=== PATIENT | female | born 1935 | race Caucasian/White ===

== ENCOUNTER 2017-06-25 13:39 | Outpatient (CLI) | payer MEDICARE, BC ==
[2017-06-25] MEDS ORDERED: Gadobenate Dimeglumine 529 MG/1 ML (20ML VIAL) ONE (15:57)
--- NOTE | 2017-06-25 17:58 | RAD ---
EXAM: CERVICAL SPINE FOUR VIEWS: 06/25/17 HISTORY: Right sided neck pain. Difficulty grabbing items with the right hand. Symptom times several years. COMPARISON: None. CORRELATION: Cervical spine MRI 02/04/14. FINDINGS: Four views cervical spine: There is an anterior fusion plate with transvertebral body screw at C5, C6 and C7. There appears to be demineralization of C6 and C7. Disc prosthesis at C5-C6 and C6-C7 is noted. Cervical spine verteb ral body height is maintained. Acute fracture is not appreciated. There is no prevertebral soft tiss ue swelling. Predental space is normal. On the AP projection, no malalignment. On the open mouth pro jection, limited evaluation of the odontoid process. IMPRESSION: Demineralization involving C5, C6, and C7. No evidence of complicated process or loosening. Presence of demineralization is nonspecific. Additional imaging with possible CT is recommended. POS: [facility]
--- NOTE | 2017-06-25 19:33 | MRI ---
CERVICAL SPINE MRI WITH AND WITHOUT CONTRAST 06/25/17 COMPARISON: Cervical spine MRI without contrast 02/04/14. HISTORY: Prior history of cervical spinal cord injury. Prior cervical spine surgery. TECHNIQUE: Multiplanar and multisequence MR imaging of the cervical spine provided with and without contrast. FINDINGS: There is reversal of the normal cervical lordosis centered at the C5 level. There is stable anterior wedging/vertebral body height loss anteriorly involving the C5 vertebral body. There is hardware as sociated with anterior discectomy and fusion spanning the C5-6 and C6-7 levels, not well assessed on this examination and unchanged. The sagittal STIR imaging demonstrates no focal area of osseous mar row edema. C2-3: Stable disc space narrowing and disc desiccation. Stable mild bilateral facet hypertrophy. Sta ble mild left neural foraminal stenosis. No significant central canal or right neural foraminal sten osis. C3-4: There is disc space narrowing, disc desiccation and mild disc bulge with no significant centra l canal stenosis. Facet and uncovertebral osteophyte formation noted bilaterally, left greater than right. Stable mild bilateral neural foraminal stenosis, left greater than right. C4-5: Disc space narrowing and disc desiccation. Mild bilateral facet hypertrophy. No significant ce ntral canal or neural foraminal stenosis. C5-6: Disc space narrowing disc desiccation noted. No central canal stenosis. Uncovertebral and face t osteophyte formation noted bilaterally, stable. Mild/moderate bilateral neural foraminal stenosis noted. C6-7: Bilateral uncovertebral osteophyte formation noted, left greater than right. Mild bilateral ne ural foraminal stenosis, left greater than right. No central canal stenosis. C7-T1: Bilateral facet hypertrophy present with mild bilateral neural foraminal stenosis. Disc space narrowing and disc desiccation noted with no significant central canal stenosis. There is a focal area of abnormal increased signal intensity within the posterior aspect of the cerv ical cord on the right at the C2-3 level. There is a punctate focus of blooming artifact along the s urface of the cord posteriorly on the right. This is unchanged when compared to studies dating back to 2007, evidence of prior cord injury and/or myelomalacia. In addition, the right lateral aspect of the cord demonstrates mild increased signal intensity and volume loss at the C7 level, similar when compared to the prior exam, also representing an area of myelomalacia. Postcontrast imaging demonstrates no abnormal enhancement involving contents of the thecal sac, the intervertebral discs, other visualized vertebral bodies. IMPRESSION: Multilevel postoperative and degenerative change within the cervical spine, not significantly change d when compared to prior imaging. 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 POS: [facility]
== END 2017-06-25 13:40 | disposition home or self-care (01) ==
LOC: TBSIIMAG 13:39
PROVIDERS: ATTEND Neurological Surgery
DX: S14.109D Unspecified injury at unspecified level of cervical spinal cord, subsequent encounter (principal); M47.812 Spondylosis without myelopathy or radiculopathy, cervical region; Z98.890 Other specified postprocedural states
CPT/HCPCS: 72040; 72156; A9579

== ENCOUNTER 2017-10-21 11:23 | Outpatient (CLI) | payer MEDICARE, BC | END 2017-10-21 11:24 | disposition home or self-care (01) | LOC: BICMAMMO 11:23 | PROVIDERS: ATTEND Family Medicine | DX: Z12.31 Encounter for screening mammogram for malignant neoplasm of breast (principal) | CPT/HCPCS: 77063; 77067 ==

== ENCOUNTER 2018-12-23 10:49 | Outpatient (CLI) | payer MEDICARE, BC ==
--- NOTE | 2018-12-23 11:53 | MMO ---
Bilateral MAMMO Bilat Screen [facility]. CLINICAL HISTORY: Patient is 83 years old and is seen for screening. The patient has no family history of breast cancer. The patient has no personal history of cancer. The patient has a history of left Excisional Biopsy - benign. VIEWS: The views performed were: bilateral craniocaudal with tomosynthesis and bilateral mediolateral oblique with tomosynthesis. FILMS COMPARED: The present examination has been compared to prior imaging studies performed at [facility] on 10/21/2017, and at [facility] on 09/04/2013, 09/14/2014, 09/20/2015 and 10/02/2016. MAMMOGRAM FINDINGS: There are scattered fibroglandular densities. There is an asymmetry seen in the MLO view only seen in the posterior upper region of the right breast. In the left breast, there are no suspicious masses, calcifications or areas of architectural distortion. IMPRESSION: ASYMMETRY IN THE RIGHT BREAST REQUIRES ADDITIONAL EVALUATION. RECOMMEND DIAGNOSTIC MAMMOGRAM. THE RESULTS OF THIS EXAM WERE SENT TO THE PATIENT. ACR BI-RADS Category 0 - Incomplete: Need additional imaging evaluation. [facility] will notify the patient of the need for additional imaging services. MAMMOGRAPHY NOTE: 1. A negative mammogram report should not delay a biopsy if a dominant of clinically suspicious mass is present. 2. Approximately 10% to 15% of breast cancers are not detected by mammography. 3. Adenosis and dense breasts may obscure an underlying neoplasm.
== END 2018-12-23 10:50 | disposition home or self-care (01) ==
LOC: BICMAMMO 10:49
PROVIDERS: ATTEND Family Medicine
DX: Z12.31 Encounter for screening mammogram for malignant neoplasm of breast (principal); N64.89 Other specified disorders of breast
CPT/HCPCS: 77063; 77067

== ENCOUNTER 2018-12-31 08:22 | Outpatient (CLI) | payer MEDICARE, BC ==
--- NOTE | 2018-12-31 08:47 | MMO ---
Right Breast MAMMO Unilat Diag [facility] RT+JOAN. CLINICAL HISTORY: Patient is 83 years old and is seen for additional evaluation requested from prior study. The patient has no family history of breast cancer. The patient has no personal history of cancer. The patient has a history of left Excisional Biopsy - benign. VIEWS: The views performed were: right mediolateral oblique spot compression with tomosynthesis and right mediolateral with tomosynthesis. FILMS COMPARED: The present examination has been compared to prior imaging studies performed at [facility] on 10/21/2017 and 12/23/2018, and at [facility] on 09/14/2014, 09/20/2015 and 10/02/2016. MAMMOGRAM FINDINGS: There are scattered fibroglandular densities. The asymmetry seen at screening mammography does not persist at additional imaging, compatible with superimposed tissue. There are no suspicious masses, suspicious calcifications, or new areas of architectural distortion. IMPRESSION: THERE IS NO MAMMOGRAPHIC EVIDENCE OF MALIGNANCY. A ROUTINE FOLLOW-UP MAMMOGRAM IN 1 YEAR IS RECOMMENDED. THE RESULTS OF THIS EXAM WERE SENT TO THE PATIENT. ACR BI-RADS Category 2 - Benign finding MAMMOGRAPHY NOTE: 1. A negative mammogram report should not delay a biopsy if a dominant of clinically suspicious mass is present. 2. Approximately 10% to 15% of breast cancers are not detected by mammography. 3. Adenosis and dense breasts may obscure an underlying neoplasm.
== END 2018-12-31 08:23 | disposition home or self-care (01) ==
LOC: BICMAMMO 08:22
PROVIDERS: ATTEND Family Medicine
DX: N64.89 Other specified disorders of breast (principal); R92.2 Inconclusive mammogram
CPT/HCPCS: 77065; G0279